=== PATIENT | female | born 1990 | race Caucasian/White ===

== ENCOUNTER 2016-09-04 14:01 | Emergency (ER) | payer OTHER ==
[~2016-09-04] VITALS: Ht 160 cm; Wt 53.5 kg
--- NOTE | 2016-09-04 14:59 | NUR ---
URINE SAMPLE COLLECTED SENT TO LAB
--- NOTE | 2016-09-04 15:12 | NUR ---
PT TAKEN TO CT VIA EM
[2016-09-04 15:54] VITALS: BP 101/52
--- NOTE | 2016-09-04 15:56 | NUR ---
Patient discharged to home in stable condition. Written and verbal after care instructions given. Patient verbalizes understanding of instruction.
== END 2016-09-04 15:56 | disposition home or self-care (01) ==
LOC: ER 14:07
DX: O90.89 Other complications of the puerperium, not elsewhere classified (principal); G89.18 Other acute postprocedural pain; R10.31 Right lower quadrant pain
CPT/HCPCS: 84703; 99284; A4606; Z7610

== ENCOUNTER 2017-06-07 13:49 | Inpatient (IN) | payer OTHER ==
[~2017-06-07] VITALS: Ht 160 cm; Wt 51.7 kg
[2017-06-07 17:20] VITALS: BP 117/70
--- NOTE | 2017-06-07 17:20 | NUR ---
RN NOTE RECIEVED PT ON BED, BROUGHT BY AMBULANCE, IN STABLE CONDITION, AOX4, COOPERATIVE, VS STABLE, DENIES PAIN OR SOB, NO EDEMA, IV IN R AC 20 G. ID BAND PLACED, BELONGINGS LIST SIGNED. SKIN INTACK, WITH MINOR BRUISE ON R ARM.
[2017-06-07] MEDS ORDERED: MAGNESIUM HYDROXIDE 30 ML UDC PO PRN (17:30)
[2017-06-07] MEDS ORDERED: Z GUARD REMEDY 2 OZ OINT TP PRN (17:30)
[2017-06-07] MEDS ORDERED: MAG HYDROX/AL HYDROX/SIMETH 30 ML UDC PO PRN (17:30)
[2017-06-07] MEDS ORDERED: HYDROCODONE/APAP 5/325MG 1 EACH TABLET PO PRN (17:30)
[2017-06-07] MEDS ORDERED: ONDANSETRON HCL/PF 4 MG/2 ML VIAL IVP PRN (17:30)
[2017-06-07] MEDS: IV NS 0.9% 1,000 ML IV PRN (18:29)
[2017-06-07 18:48] LABS: BASOPHILS % (AUTO) 0.1 % (0.0-2.0); EOSINOPHILS % (AUTO) 0.1 % (0.0-6.0); HEMATOCRIT 36 % (33-45); HEMOGLOBIN 12.2 g/dL (11.5-14.8); LYMPHOCYTES # (AUTO) 1.3 /CMM (0.8-4.8); LYMPHOCYTES % (AUTO) 50.9 % (20.0-44.0); MEAN CORPUSCULAR HGB CONC 34 g/dl (31.0-36.0); MEAN CORPUSCULAR VOLUME 80 fL (82-100); MONOCYTES % (AUTO) 40.8 % (2.0-12.0); NEUTROPHILS # (AUTO) 0.2 /CMM (1.8-8.9); NEUTROPHILS % (AUTO) 8.1 % (43.0-81.0); PLATELET COUNT (AUTO) 59 /CMM (150-450); RDW COEFFICIENT OF VARIATION 14.5 (11.5-15.0); RED BLOOD CELL COUNT(AUTO) 4.52 MIL/uL (4.0-5.2); WHITE BLOOD COUNT (AUTO) 2.5 K/uL (4.3-11.0)
[2017-06-07] MEDS: CEFTRIAXONE 1 G in IV D5W 50 ML IV SCH (19:10)
[2017-06-07] MEDS ORDERED: IOHEXOL-300 100 ML VIAL IV ONE (19:12)
[2017-06-07] MEDS ORDERED: IV NS 0.9% 250 ML IV ONE (19:12)
[2017-06-07 19:15] LABS: THYROID STIMULATING HORMONE 2.207 uIU/mL (0.358-3.74)
[2017-06-07 19:27] LABS: CALCIUM, SERUM 8.7 mg/dL (8.5-10.1); CREATININE 0.7 mg/dL (0.6-1.3); POTASSIUM 3.6 mmol/L (3.5-5.1)
--- NOTE | 2017-06-07 19:30 | NUR ---
RN OPENING NOTES RECEIVED REPORT FROM MEME LAZAR. PATIENT A/A/O X4, ABLE TO VERBALIZE NEEDS. SKIN WARM, DRY & INTACT W/ PULSES PRESENT. BREATHING EVEN & UNLABORED, TOLERATING ROOM AIR. DENIES ANY SOB OR DIFFICULTY BREATHING. RIGHT AC IV #20 INTACT & PATENT W/ DRESSING CDI & IVF NS @ 100 ML/HR. PATIENT C/O PAIN IN MOUTH W/ 4 OUT OF 0-10 PAIN SCALE. PAIN MED TO BE GIVEN. SAFETY MEASURES IN PLACE W/ CALL LIGHT WITHIN REACH. ABLE TO AMBULATE W/ STEADY GAIT BUT INSTRUCTED TO CALL FOR ASSISTANCE. FRIEND @ BEDSIDE. WILL CONTINUE TO MONITOR CLOSELY.
[2017-06-07 19:32] LABS: ALBUMIN 3.2 g/dL (3.4-5.0); BILIRUBIN,TOTAL 0.9 mg/dL (0.2-1.0); TOTAL PROTEIN, SERUM 7.3 g/dL (6.4-8.2)
[2017-06-07 20:00] VITALS: BP_SYST 113; BP_SYST 63; BP_DIAS 30; BP_DIAS 61
--- NOTE | 2017-06-07 20:00 | NUR ---
RN NOTES PATIENT BACK FROM CT IN STABLE CONDITION. IV ATB ROCEPHIN STARTED.
[2017-06-07 20:07] LABS: BAND % (MANUAL) 6 % (0.0-5.0); LYMPHOCYTES % (MANUAL) 53 % (16-48); MONOCYTES % (MANUAL) 34 % (0-11.0); NEUTROPHILS % (MANUAL) 7 (42-76)
--- NOTE | 2017-06-07 20:47 | NUR ---
RN NOTES SPOKE TO PAPO PATEL & REPORTED LAB RESULTS FOR PLT = 59 & WBC = 2.5. NO NEW ORDERS RECEIVED.
[2017-06-07] MEDS: FLUCONAZOLE (100 MG) 100 MG TABLET PO SCH (21:14)
[2017-06-08] VITALS: BP 104/68
[2017-06-08 00:04] VITALS: BP 104/62
[2017-06-08] MEDS: ACETAMINOPHEN 325 MG TABLET PO PRN ×2 (00:46→12:24)
[2017-06-08] MEDS ORDERED: MORPHINE SULFATE INJ 2 MG/ML DISP.SYRIN IV PRN (02:00)
--- NOTE | 2017-06-08 02:00 | NUR ---
RN NOTES SPOKE TO PAPO PATEL REGARDING PATIENT'S REQUEST FOR IBUPROFEN BECAUSE NORCO NOT EFFECTIVE FOR HER PAIN. BUT PLATELET LEVEL IS TOO LOW SO ORDER RECEIVED FOR MORPHINE 0.5MG IV Q4H PRN. NEW ORDER CARRIED OUT. WILL CONTINUE TO MONITOR.
[2017-06-08] MEDS ORDERED: MORPHINE SULFATE INJ 2 MG/ML DISP.SYRIN ONE (02:05)
[2017-06-08 02:32] LABS: APPEARANCE,URINE CLEAR (CLEAR); BILIRUBIN,URINE NEGATIVE (NEGATIVE); BLOOD, URINE 1+ Ery/uL (NEGATIVE); COLOR,URINE YELLOW (YELLOW); KETONES,URINE 3+ (NEGATIVE); LEUKOCYTE ESTERASE ,URINE NEGATIVE (NEGATIVE); NITRITE, URINE NEGATIVE (NEGATIVE); PH,URINE 6.5 (5.0-8.0); PROTEIN,URINE 1+ mg/dl (NEGATIVE); UGLUCOSE NEGATIVE (NEGATIVE)
[2017-06-08 02:40] LABS: BACTERIA,URINE FEW /HPF (None Seen); SQUAMOUS EPITHELIAL CELL,UR FEW /HPF (None Seen); WBC,URINE 0-2 /HPF (0-3)
[2017-06-08 04:00] VITALS: BP 104/62
[2017-06-08 07:12] LABS: BASOPHILS % (AUTO) 0.3 % (0.0-2.0); EOSINOPHILS % (AUTO) 0.2 % (0.0-6.0); HEMATOCRIT 36 % (33-45); HEMOGLOBIN 11.8 g/dL (11.5-14.8); LYMPHOCYTES # (AUTO) 1.8 /CMM (0.8-4.8); LYMPHOCYTES % (AUTO) 44.2 % (20.0-44.0); MEAN CORPUSCULAR HGB CONC 33 g/dl (31.0-36.0); MEAN CORPUSCULAR VOLUME 81 fL (82-100); MONOCYTES # (AUTO) 1.5 /CMM (0.1-1.30); MONOCYTES % (AUTO) 37.8 % (2.0-12.0); NEUTROPHILS # (AUTO) 0.7 /CMM (1.8-8.9); NEUTROPHILS % (AUTO) 17.5 % (43.0-81.0); PLATELET COUNT (AUTO) 66 /CMM (150-450); RDW COEFFICIENT OF VARIATION 14.4 (11.5-15.0); RED BLOOD CELL COUNT(AUTO) 4.39 MIL/uL (4.0-5.2); WHITE BLOOD COUNT (AUTO) 4.1 K/uL (4.3-11.0)
[2017-06-08 07:21] LABS: CALCIUM, SERUM 8.1 mg/dL (8.5-10.1); CREATININE 0.6 mg/dL (0.6-1.3); MAGNESIUM 1.7 mg/dL (1.8-2.4); PHOSPHORUS 2.3 mg/dL (2.5-4.9); POTASSIUM 4.1 mmol/L (3.5-5.1)
[2017-06-08 08:00] VITALS: BP 111/64
[2017-06-08] MEDS: NYSTATIN (PYXIS) 500,000 UNIT/5 ML ORAL.SUSP PO SCH ×3 (09:14→17:33)
[2017-06-08] MEDS: FLUCONAZOLE (100 MG) 100 MG TABLET PO SCH (09:14)
[2017-06-08 10:55] LABS: BAND % (MANUAL) 3 % (0.0-5.0); LYMPHOCYTES % (MANUAL) 56 % (16-48); MONOCYTES % (MANUAL) 25 % (0-11.0); NEUTROPHILS % (MANUAL) 14 (42-76)
[2017-06-08 10:56] LABS: REACTIVE LYMPHOCYTES 2 % (0-0)
[2017-06-08 12:15] LABS: *EBV AB VCA, IgM <36.0 U/mL (0.0-35.9)
[2017-06-08] MEDS: IV NS 0.9% 1,000 ML IV PRN ×2 (12:22→17:33)
[2017-06-08] MEDS: Magnesium 1GM/D5W 100ML PREMIX 100 ML IV SCH ×2 (12:23→13:53)
[2017-06-08] MEDS ORDERED: MORPHINE SULFATE INJ 4 MG/ML DISP.SYRIN IV PRN (13:00)
[2017-06-08] MEDS ORDERED: K PHOS NEUTRAL 250 MG TABLET PO ONE (13:00)
[2017-06-08 16:00] VITALS: BP 110/60
[2017-06-08] MEDS: CEFTRIAXONE 1 G in IV D5W 50 ML IV SCH (17:33)
--- NOTE | 2017-06-08 19:30 | NUR ---
RN OPENING NOTES RECEIVED REPORT FROM MEME LAZAR. PATIENT A/A/O X4, ABLE TO VERBALIZE NEEDS. SKIN WARM, DRY & INTACT W/ PULSES PRESENT. BREATHING EVEN & UNLABORED, TOLERATING ROOM AIR. DENIES ANY SOB OR DIFFICULTY BREATHING. RIGHT AC IV #20 INTACT & PATENT W/ DRESSING CDI & IVF NS @ 50 ML/HR. DENIES ANY PAIN OR DISCOMFORT @ THIS TIME. SAFETY MEASURES IN PLACE W/ CALL LIGHT WITHIN REACH. ABLE TO AMBULATE W/ STEADY GAIT BUT INSTRUCTED TO CALL FOR ASSISTANCE. FRIEND @ BEDSIDE. WILL CONTINUE TO MONITOR CLOSELY.
[2017-06-08 20:00] VITALS: BP 104/68
[2017-06-09] MEDS ORDERED: MENTHOL/CETYLPYRD (CEPACOL) 1 LOZ LOZENGE PO PRN (00:30)
[2017-06-09 04:00] VITALS: BP 102/64
[2017-06-09 04:15] LABS: CMV, IgG <0.60 U/mL (0.00-0.59); CMV, IgM <30.0 AU/mL (0.0-29.9)
[2017-06-09 08:00] VITALS: BP 101/67
[2017-06-09 08:30] LABS: BASOPHILS % (AUTO) 0.3 % (0.0-2.0); EOSINOPHILS % (AUTO) 0.7 % (0.0-6.0); HEMATOCRIT 31 % (33-45); HEMOGLOBIN 10.7 g/dL (11.5-14.8); LYMPHOCYTES # (AUTO) 2.5 /CMM (0.8-4.8); LYMPHOCYTES % (AUTO) 49.2 % (20.0-44.0); MEAN CORPUSCULAR HGB CONC 34 g/dl (31.0-36.0); MEAN CORPUSCULAR VOLUME 80 fL (82-100); MONOCYTES # (AUTO) 0.8 /CMM (0.1-1.30); MONOCYTES % (AUTO) 16.6 % (2.0-12.0); NEUTROPHILS # (AUTO) 1.7 /CMM (1.8-8.9); NEUTROPHILS % (AUTO) 33.2 % (43.0-81.0); PLATELET COUNT (AUTO) 103 /CMM (150-450); RDW COEFFICIENT OF VARIATION 14.6 (11.5-15.0); RED BLOOD CELL COUNT(AUTO) 3.92 MIL/uL (4.0-5.2); WHITE BLOOD COUNT (AUTO) 5.1 K/uL (4.3-11.0)
[2017-06-09] MEDS: NYSTATIN (PYXIS) 500,000 UNIT/5 ML ORAL.SUSP PO SCH ×2 (10:04→13:10)
[2017-06-09] MEDS: FLUCONAZOLE (100 MG) 100 MG TABLET PO SCH (10:04)
[2017-06-09 10:58] LABS: BAND % (MANUAL) 1 % (0.0-5.0); LYMPHOCYTES % (MANUAL) 43 % (16-48); MONOCYTES % (MANUAL) 19 % (0-11.0); NEUTROPHILS % (MANUAL) 37 (42-76)
[2017-06-09] MEDS: IV NS 0.9% 1,000 ML IV PRN (13:10)
--- NOTE | 2017-06-09 16:08 | NUR ---
RN NOTE PT DISCHARGED HOME IN STABLE CONDITION, WITH GRANDFATHER VIA OWN TRANSPORTATION, DISCHARGE INSTRUCTIONS GIVEN TO PT, EXIT CARE PROVIDED, IV REMOVED, ID BAND REMOVED, TEACHING PROVIDED, PT VERBALIZED UNDERSTANDING, NO PRESCRIPTIONS GIVEN. PICTURES OF THE SKIN TAKE AND PLACED IN THE CHART. BELONGINGS LIST SIGNED, BELONGINGS GIVEN TO PT.
== END 2017-06-09 15:00 | disposition home or self-care (01) | DRG 723 ==
LOC: TELE1 16:45 → MEDSG1 17:37
PROVIDERS: ADMIT Nurse Practitioner Acute Care; ATTEND Nurse Practitioner Acute Care
DX: B34.9 Viral infection, unspecified (principal); E87.2 Acidosis; D69.6 Thrombocytopenia, unspecified; E83.42 Hypomagnesemia; E44.1 Mild protein-calorie malnutrition; Z98.890 Other specified postprocedural states; J02.0 Streptococcal pharyngitis; E83.39 Other disorders of phosphorus metabolism; F12.90 Cannabis use, unspecified, uncomplicated; D72.819 Decreased white blood cell count, unspecified; Z87.891 Personal history of nicotine dependence; H54.62 Unqualified visual loss, left eye, normal vision right eye; D72.820 Lymphocytosis (symptomatic)
CPT/HCPCS: 36415; 70487-TC; 80048-TC; 80053-TC; 80061-TC; 81000-TC; 83605-TC; 83735-TC; 84100-TC; 84443-TC; 85025-TC; 86403-TC; 86644; 86645; 86663; 86664; 86665; 87040-TC; 87070-TC; 87081-TC; 87400; J0696; J2270; J3475; J7030; J7050; J7060; Q9967; Z7610